=== PATIENT | female | born 1945 | race Caucasian/White ===

== ENCOUNTER 2022-02-12 13:47 | Outpatient (CLI) | payer MEDICARE, SELFPAY ==
--- NOTE | 2022-02-12 13:54 | USCV_ITS ---
Cristal Wheatley Age: 76 Gender: F : 1945 Exam Date: 02/12/2022 14:30 Ordering Phys: Ember Rivas Technologist: Exam Location: [facility] [place]: Murmur, shortness of breath BP: 120 / 62 HR: 67 Rhythm: Sinus Technical Quality: Adequate MEASUREMENTS (Male / Female) Normal Values 2D ECHO LV Diastolic Diameter PLAX 3.6 cm 4.2 - 5.9 / 3.9 - 5.3 cm LV Systolic Diameter PLAX 2.4 cm IVS Diastolic Thickness 0.9 cm 0.6 - 1.0 / 0.6 - 0.9 cm IVS Systolic Thickness 1.3 cm LVPW Diastolic Thickness 1.2 cm 0.6 - 1.0 / 0.6 - 0.9 cm LVPW Systolic Thickness 1.4 cm LVOT Diameter 2.5 cm LV Ejection Fraction 2D Teich 62.0 % LV Ejection Fraction MOD 2C 70.6 % LV Ejection Fraction 2C AL 71.6 % LA Diameter 4.0 cm IVC Diameter 2.3 cm DOPPLER AV Peak Velocity 173.0 cm/s LVOT Peak Velocity 119.0 cm/s AV Area Cont Eq vti 3.4 cm squared AV Area Cont Eq pk 3.5 cm squared MV Area PHT 5.0 cm squared Mitral E to A Ratio 1.0 MV E' Velocity 66.4 cm/s Mitral E to MV E' Ratio 11.1 Mitral E to LV E' Lateral Ratio 8.9 Mitral E to LV E' Septal Ratio 14.7 TR Peak Velocity 118.7 cm/s TR Peak Gradient 5.6 mmHg TV Peak E Velocity 71.0 cm/s Right Atrial Pressure 3.0 mmHg Pulmonary Artery Systolic Pressu 8.6 mmHg RV Acceleration Time 0.1 s FINDINGS Left Ventricle Normal left ventricular size, systolic function and wall thickness, with no regional wall motion abnormalities. Left ventricular ejection fraction is estimated at 65 %. Grade II diastolic dysfunction, moderately elevated filling pressures. Right Ventricle Normal right ventricular size and systolic function. RVSP could not be calculated due to incomplete tricuspid regurgitation velocity profile. Right Atrium Normal right atrial size. Left Atrium Mildly increased left atrial size. Mitral Valve Structurally normal mitral valve. No mitral valve stenosis. Trace mitral valve regurgitation. Aortic Valve Aortic valve not well visualized. No aortic valve stenosis. No aortic valve regurgitation. Tricuspid Valve Structurally normal tricuspid valve. No tricuspid valve stenosis. No tricuspid valve regurgitation. Pulmonic Valve Pulmonic valve not well visualized. Pericardium No pericardial effusion. Aorta Normal sized aortic root. IVC Inferior vena cava not visualized. CONCLUSIONS 1. Normal left ventricular size, systolic function and wall thickness, with no regional wall motion abnormalities. Left ventricular ejection fraction is estimated at 65 %. Grade II diastolic dysfunction, moderately elevated filling pressures. 2. Normal right ventricular size and systolic function. 3. No prior similar studies to compare. Diane Newman MD (Electronically Signed) Final Date: 18 February 2022 18:22 S
== END 2022-02-12 13:48 | disposition home or self-care (01) ==
LOC: RAD 13:47
PROVIDERS: PCP Nurse Practitioner Family; Visit Provider Nurse Practitioner Family
DX: R01.1 Cardiac murmur, unspecified (principal); R06.02 Shortness of breath
CPT/HCPCS: 93306